=== PATIENT | male | born 1990 | race Asian ===

== ENCOUNTER 2021-04-24 00:07 | Emergency (ER) | payer OTHER ==
[~2021-04-24] VITALS: Ht 190.5 cm; Wt 190.5 kg
[2021-04-24 01:38] LABS: PLATELET COUNT 210 K/uL (142-355)
[2021-04-24 01:49] LABS: POTASSIUM 4.2 mmol/L (3.6-5.2)
[2021-04-24 02:01] LABS: PARTIAL THROMBOPLASTIN TIME 22.7 SECONDS (24.5-33.6)
[2021-04-24 06:19] VITALS: BP 159/89; TEMP 98.7
== END 2021-04-24 06:19 | disposition home or self-care (01) ==
LOC: ED 00:07
PROVIDERS: Hospitalist
DX: K29.70 Gastritis, unspecified, without bleeding (principal); E11.65 Type 2 diabetes mellitus with hyperglycemia
CPT/HCPCS: 36415; 36600; 80053; 80320; 81000; 81002; 82805; 82948; 83690; 85027; 85610; 85730; 96360; 96375; 96376; 99284; J1815

== ENCOUNTER 2021-08-29 20:27 | Emergency (ER) | payer OTHER ==
[~2021-08-29] VITALS: Ht 190.5 cm; Wt 190.5 kg
[2021-08-29 20:57] LABS: PLATELET COUNT 200 K/uL (142-355)
[2021-08-29 21:20] LABS: POTASSIUM 3.7 mmol/L (3.6-5.2)
[2021-08-29 22:15] VITALS: BP 133/68; TEMP 98.1
[2021-08-29 22:26] LABS: PARTIAL THROMBOPLASTIN TIME 28.7 SECONDS (24.5-33.6)
== END 2021-08-29 22:15 | disposition home or self-care (01) ==
LOC: ED 20:27
PROVIDERS: Hospitalist
DX: R07.89 Other chest pain (principal); I10 Essential (primary) hypertension
CPT/HCPCS: 36415; 80053; 82550; 83880; 84484; 85027; 85610; 85730; 93005; 99284

== ENCOUNTER 2023-02-07 11:50 | Emergency (ER) | payer OTHER ==
[~2023-02-07] VITALS: Ht 190.5 cm; Wt 181.4 kg
[~2023-02-07 11:50] MED LIST: AMOX875T8 PO; IBU600 MG PO
[2023-02-07 11:51] VITALS: TEMP 98.1
[2023-02-07 12:25] LABS: PLATELET COUNT 179 K/uL (142-355)
[2023-02-07 12:30] LABS: POTASSIUM 3.8 mmol/L (3.6-5.2)
[2023-02-07 14:40] VITALS: BP 143/62
== END 2023-02-07 14:40 | disposition short-term general hospital (02) ==
LOC: ED 11:50
PROVIDERS: Family Medicine
DX: I48.20 Chronic atrial fibrillation, unspecified (principal); F17.210 Nicotine dependence, cigarettes, uncomplicated
CPT/HCPCS: 36415; 80053; 80307; 84443; 84484; 85027; 85379; 93005; 96374; 99285; J0153; J3490